=== PATIENT | female | born 1945 | race Caucasian/White ===

== ENCOUNTER 2018-12-04 08:05 | Day surgery (SDC) | payer MEDICARE, BC ==
[~2018-12-04 08:05] MED LIST: Lactated Ringers 1,000 ML IV SCH; Lidocaine 1%/Sod Bicarbonate in NS 8.4% 1 ML Syringe IDERM PRN; Sodium Chloride 0.9% 10 ML Syringe FLUSH PRN
--- NOTE | 2018-12-04 08:38 | PCM.PREANE ---
Preanesthetic Assessment - Procedure Proposed Procedure: screning colonoscopy - Anesthesia/Transfusion/Family Hx Anesthesia History: Prior Anesthesia Without Reaction Family History of Anesthesia Reaction: No Transfusion History: No Prior Transfusion(s) - Review of Systems General: No Symptoms Pulmonary: No Symptoms Cardiovascular: No Symptoms Gastrointestinal: No Symptoms Neurological: No Symptoms Other: Reports: Anxiety - Physical Assessment NPO Status Date: 12/04/18 NPO Status Time: 04:30 (finished prep) O2 Sat by Pulse Oximetry: 95 Respiratory Rate: 16 Vital Signs: Last Vital Signs Temp 97.6 F 12/04/18 08:20 Pulse 66 12/04/18 08:20 Resp 16 12/04/18 08:20 BP 199/77 H 12/04/18 08:20 Pulse Ox 95 12/04/18 08:20 Height: 5 ft 4 in Weight: 71.668 kg ASA Class: 2 Mental Status: Alert & Oriented x3 Airway Class: Mallampati = 1 Dentition: Reports: Normal Dentition Thyro-Mental Finger Breadths: 3 Mouth Opening Finger Breadths: 3 ROM/Head Extension: Full Lungs: Clear to Auscultation, Normal Respiratory Effort Cardiovascular: Regular Rate, Regular Rhythm - Allergies Allergies/Adverse Reactions: Allergies Allergy/AdvReac Type Severity Reaction Status Date / Time No Known Allergies Allergy Verified 12/03/18 15:41 - Blood Blood Available: No - Acknowledgements Anesthesia Type Planned: MAC Pt an Appropriate Candidate for the Planned Anesthesia: Yes Alternatives and Risks of Anesthesia Discussed w Pt/Guardian: Yes Pt/Guardian Understands and Agrees with Anesthesia Plan: Yes PreAnesthesia Questionnaire HEENT History: Reports: Impaired Vision Cardiovascular History: Reports: Afib, High Cholesterol, Hypertension Other Cardiovascular History: Pt takes Xarelto. Respiratory History: Reports: None Gastrointestinal History: Reports: None Genitourinary History: Reports: None GM History: Reports: None Musculoskeletal History: Reports: Other (See Below) Other Musculoskeletal History: myalgia, osteopenia Neurological History: Reports: None Psychiatric History: Reports: Anxiety, Depression Other Psychiatric History: On lexapro Endocrine/Metabolic History: Reports: None Hematologic History: Reports: Other (See Below) Other Hematologic History: elevated potassium Immunologic History: Reports: None Oncologic (Cancer) History: Reports: None Dermatologic History: Reports: Other (See Below) Other Dermatologic History: cervical lymphadenectomy - Infectious Disease History Infectious Disease History: Reports: Chicken Pox, Measles, Mumps, Other (See Below) Other Infectious Disease History: Pt states she got the shingles vaccine. - Past Surgical History Head Surgeries/Procedures: Reports: None HEENT Surgical History: Reports: None, Cataract Surgery Cardiovascular Surgical History: Reports: None Respiratory Surgical History: Reports: None GI Surgical History: Reports: Colonoscopy Female Surgical History: Reports: D&C Male Surgical History: Reports: None Endocrine Surgical History: Reports: None Neurological Surgical History: Reports: None Oncologic Surgical History: Reports: None - SUBSTANCE USE Smoking Status *Q: Never Smoker Tobacco Use Within Last Twelve Months: No Second Hand Smoke Exposure: No Days Per Week of Alcohol Use: 1 (one per month) Recreational Drug Use History: No - HOME MEDS Home Medications: Home Meds Metoprolol Tartrate [Lopressor] 75 mg PO Q12HR #60 tablet 02/24/16 [Rx] ALPRAZolam [Xanax] 0.25 - 0.5 mg PO BID PRN 12/03/18 [History] Apixaban [Eliquis] 5 mg PO DAILY 12/03/18 [History] Cholecalciferol (Vitamin D3) [Vitamin D3] 2,000 unit PO DAILY 12/03/18 [History] Lisinopril 10 mg PO DAILY 12/03/18 [History] Multivitamin [Multi-Day Vitamins] 1 tab PO DAILY 12/03/18 [History] Sertraline [Zoloft] 100 mg PO DAILY 12/03/18 [History] atorvaSTATin [Lipitor] 10 mg PO DAILY 12/03/18 [History] - CURRENT (IN HOUSE) MEDS Current Meds: Current Medications Lactated Ringer's (Ringers, Lactated) 1,000 mls @ 125 mls/hr IV ASDIRECTED [facility] Stop: 12/04/18 23:00 Lidocaine/Sodium Bicarbonate (Buffered Lidocaine 1% In Ns 8.4%) 0.25 ml IDERM ONETIME PRN PRN Reason: Prior to IV Start Stop: 12/04/18 23:00 Sodium Chloride (Saline Flush) 10 ml FLUSH ASDIRECTED PRN PRN Reason: Keep Vein Open Stop: 12/04/18 23:00
[2018-12-04] MEDS ORDERED: Propofol 200 MG/20 ML SDV ONE ×2 (08:56→10:16)
--- NOTE | 2018-12-04 10:38 | PCM48HPAN ---
Post Anesthesia Note - EVALUATION WITHIN 48HRS OF ANESTHETIC Vital Signs in Normal Range: Yes Patient Participated in Evaluation: Yes Respiratory Function Stable: Yes Airway Patent: Yes Cardiovascular Function Stable: Yes Hydration Status Stable: Yes Pain Control Satisfactory: Yes Nausea and Vomiting Control Satisfactory: Yes Mental Status Recovered: Yes Pulse Rate: 57 SaO2: 97 Resp Rate: 16 Temperature: 36.4 C Blood Pressure: 121/53
--- NOTE | 2018-12-04 10:39 | PCM.OPNOTE ---
- General Post-Op/Procedure Note Date of Surgery/Procedure: 12/04/18 Operative Procedure(s): colonoscopy with biopsy Findings: 1) small 3 mm sessile polyp in the cecum, removed by cold forceps polypectomy 2) moderate sigmoid diverticulosis Pre Op Diagnosis: screening colonoscopy Post-Op Diagnosis: Same Anesthesia Technique: MAC Primary Surgeon: Brenton Villegas Anesthesia Provider: Lucy Villegas Pathology: cecal polyp Fluid Replacement, Intraop: 1,300 (crystalloid) Complications: None Condition: Good Free Text/Narrative:: Indications for surgery: The patient is 73 yo female, h/o prior colonoscopy about 12 years ago, reportedly normal, here for repeat screening colonoscopy, average risk. The patient was consented for colonoscopy with possible biopsy. Indications, risks, and benefits were discussed with the patient in detail. Description of procedure: After surgical consent was verified, the patient was brought to the main OR. A surgical time-out was performed to verify proper patient and proper procedure. Anesthesia performed monitored anesthesia care. A digital rectal exam was performed, which was normal. The colonoscope was inserted into the anus and advanced through the colon to the terminal ileum Location of the cecum was confirmed by presence of the appendiceal orifice and by presence of the ileocecal valve. The scope was then withdrawn, with inspection of the colonic mucosa.Retroflexion was performed in the rectum. The remainder of the colon and rectum was normal. Withdrawal time was 11 minutes, including time spent performing polypectomy. There was a small 3 mm sessile polyp in the cecum, removed by cold forceps polypectomy. There was moderate sigmoid colon diverticulosis. There was minimal blood loss. The patient tolerated the procedure well, was brought out of anesthesia, and transported to the PACU in stable condition. The prep was good. Brenton Villegas M.D. ([facility]iri), F.A.C.S. General Surgery
[2018-12-04 13:01] VITALS: BP 140/59
== END 2018-12-04 11:32 | disposition home or self-care (01) ==
LOC: JD.SDS 08:05
PROVIDERS: ATTEND Student in an Organized Health Care Education/Training Program
DX: Z12.11 Encounter for screening for malignant neoplasm of colon (principal); D12.0 Benign neoplasm of cecum; K57.30 Diverticulosis of large intestine without perforation or abscess without bleeding; I10 Essential (primary) hypertension; I48.91 Unspecified atrial fibrillation; E78.5 Hyperlipidemia, unspecified; E78.00 Pure hypercholesterolemia, unspecified; F41.9 Anxiety disorder, unspecified; F32.9 Major depressive disorder, single episode, unspecified; Z79.01 Long term (current) use of anticoagulants; Z79.899 Other long term (current) drug therapy
CPT/HCPCS: 45380; 93005; J2704; J7120; 00812

== ENCOUNTER 2020-04-29 07:59 | Day surgery (SDC) | payer MEDICARE, BC ==
--- NOTE | 2020-04-27 15:10 | PCM.PREANE ---
<Denisse Malone - Last Filed: 04/27/20 15:05> Preanesthetic Assessment - Procedure Proposed Procedure: Left ring finger trigger finger release with right middle finger steroid injection - Anesthesia/Transfusion/Family Hx Anesthesia History: Prior Anesthesia Without Reaction Family History of Anesthesia Reaction: No Transfusion History: No Prior Transfusion(s) Intubation History: Unknown - Review of Systems Cardiovascular: No Symptoms (History of atrial fibrillation: on eliquis/history of white coat syndrome with elevated bp., elevated cholesterol, HTN) Other: Reports: None (CKD: GFR=44), Neck Pain (history of cervical lymphadenopathy), Depression, Anxiety - Physical Assessment NPO Status Date: 04/28/20 Vital Signs: HR: Sat: Temp: Resp: B/P: Height: 1.63 m ASA Class: 2 Mental Status: Alert & Oriented x3 - Lab Values: All labs reviewed and noted and within acceptable ranges to proceed with scheduled procedure. - Imaging/EKG Impressions: EKG: SR rate= 68, borderline T wave progression anterior leads CXR: negative - Allergies Allergies/Adverse Reactions: Allergies Allergy/AdvReac Type Severity Reaction Status Date / Time No Known Allergies Allergy Verified 04/28/20 13:04 - Anesthesia Plan Pre-Op Medication Ordered: Beta Jessica Beta Jessica: Metoprolol Med Last Dose Date: 04/29/20 - Acknowledgements Anesthesia Type Planned: MAC (Local) Pt an Appropriate Candidate for the Planned Anesthesia: Yes Alternatives and Risks of Anesthesia Discussed w Pt/Guardian: Yes Pt/Guardian Understands and Agrees with Anesthesia Plan: Yes PreAnesthesia Questionnaire HEENT History: Reports: Impaired Vision Cardiovascular History: Reports: Afib, High Cholesterol, Hypertension Other Cardiovascular History: Pt takes Xarelto. Respiratory History: Reports: None Gastrointestinal History: Reports: None Genitourinary History: Reports: None MARKETING DATABASE ANALYST History: Reports: None Musculoskeletal History: Reports: Other (See Below) Other Musculoskeletal History: myalgia, osteopenia Neurological History: Reports: None Psychiatric History: Reports: Anxiety, Depression Other Psychiatric History: On lexapro Endocrine/Metabolic History: Reports: None Hematologic History: Reports: Other (See Below) Other Hematologic History: elevated potassium Immunologic History: Reports: None Oncologic (Cancer) History: Reports: None Dermatologic History: Reports: Other (See Below) Other Dermatologic History: cervical lymphadenectomy - Infectious Disease History Infectious Disease History: Reports: Chicken Pox, Measles, Mumps, Other (See Below) Other Infectious Disease History: Pt states she got the shingles vaccine. - Past Surgical History Head Surgeries/Procedures: Reports: None HEENT Surgical History: Reports: None, Cataract Surgery Cardiovascular Surgical History: Reports: None Respiratory Surgical History: Reports: None GI Surgical History: Reports: Colonoscopy Female Surgical History: Reports: D&C Male Surgical History: Reports: None Endocrine Surgical History: Reports: None Neurological Surgical History: Reports: None Oncologic Surgical History: Reports: None - HOME MEDS Home Medications: Home Meds Metoprolol Tartrate [Lopressor] 75 mg PO Q12HR #60 tablet 02/24/16 [Rx] ALPRAZolam [Xanax] 0.25 - 0.5 mg PO BID PRN 12/03/18 [History] Apixaban [Eliquis] 5 mg PO DAILY 12/03/18 [History] Cholecalciferol (Vitamin D3) [Vitamin D3] 2,000 unit PO DAILY 12/03/18 [History] Lisinopril 10 mg PO DAILY 12/03/18 [History] Multivitamin [Multi-Day Vitamins] 1 tab PO DAILY 12/03/18 [History] Sertraline [Zoloft] 100 mg PO DAILY 12/03/18 [History] Ubidecarenone [Coq-10] 100 mg PO DAILY 04/28/20 [History] amLODIPine [Norvasc] 5 mg PO DAILY 04/28/20 [History] Acetaminophen/HYDROcodone [Davis 325-5 MG] 1 - 2 tab PO Q6H PRN #10 tablet 04/29/20 [Rx] <Justyna Reina - Last Filed: 04/29/20 08:53> Preanesthetic Assessment - Anesthesia/Transfusion/Family Hx Anesthesia History: Prior Anesthesia Without Reaction Family History of Anesthesia Reaction: No Transfusion History: No Prior Transfusion(s) Intubation History: Unknown - Review of Systems General: No Symptoms Pulmonary: No Symptoms Cardiovascular: No Symptoms Gastrointestinal: No Symptoms Neurological: No Symptoms Other: Reports: None, Neck Pain, Depression, Anxiety - Physical Assessment ASA Class: 2 Mental Status: Alert & Oriented x3 Airway Class: Mallampati = 2 Dentition: Reports: Normal Dentition Thyro-Mental Finger Breadths: 3 Mouth Opening Finger Breadths: 3 ROM/Head Extension: Full Lungs: Clear to Auscultation, Normal Respiratory Effort Cardiovascular: Regular Rate, Regular Rhythm - Lab Values: Laboratory Last Values SARS Virus RNA (PCR) Negative (NEGATIVE) 12/30/19 14:30 MRSA (PCR) Negative 04/23/20 12:15 - Anesthesia Plan Pre-Op Medication Ordered: Anxiolytic, Beta Jessica Beta Jessica: Metoprolol Med Last Dose Time: 06:30 - Acknowledgements Anesthesia Type Planned: MAC Pt an Appropriate Candidate for the Planned Anesthesia: Yes Alternatives and Risks of Anesthesia Discussed w Pt/Guardian: Yes Pt/Guardian Understands and Agrees with Anesthesia Plan: Yes PreAnesthesia Questionnaire - CURRENT (IN HOUSE) MEDS Current Meds: Current Medications Lactated Ringer's (Ringers, Lactated) 1,000 mls @ 125 mls/hr IV ASDIRECTED [facility] Stop: 04/29/20 23:00 Last Admin: 04/29/20 08:05 Dose: 125 mls/hr Documented by: Lidocaine/Sodium Bicarbonate (Buffered Lidocaine 1% In Ns 8.4%) 0.25 ml IDERM ONETIME PRN PRN Reason: Prior to IV Start Stop: 04/29/20 23:00 Last Admin: 04/29/20 08:10 Dose: 0.25 ml Documented by: Sodium Chloride (Saline Flush) 10 ml FLUSH ASDIRECTED PRN PRN Reason: Keep Vein Open Stop: 04/29/20 23:00 Discontinued Medications Bupivacaine HCl (Sensorcaine-Mpf 0.25%) Confirm Administered Dose 10 ml .ROUTE .STK-MED ONE Stop: 04/29/20 08:13 Bupivacaine HCl (Sensorcaine-Mpf 0.25%) Confirm Administered Dose 10 ml .ROUTE .STK-MED ONE Stop: 04/29/20 08:24 Fentanyl (Sublimaze) Confirm Administered Dose 100 mcg .ROUTE .STK-MED ONE Stop: 04/29/20 08:10 Lactated Ringer's (Ringers, Lactated) 1,000 mls @ 125 mls/hr IV ASDIRECTED [facility] Stop: 01/01/20 23:00 Lidocaine HCl (Xylocaine-Mpf 1%) Confirm Administered Dose 4 mls @ as directed .ROUTE .STK-MED ONE Stop: 04/29/20 08:10 Lidocaine HCl (Xylocaine-Mpf 1%) Confirm Administered Dose 30 ml .ROUTE .STK-MED ONE Stop: 04/29/20 08:13 Lidocaine/Sodium Bicarbonate (Buffered Lidocaine 1% In Ns 8.4%) 0.25 ml IDERM ONETIME PRN PRN Reason: Prior to IV Start Stop: 01/01/20 18:00 Midazolam HCl (Versed 1 Mg/Ml) Confirm Administered Dose 2 mg .ROUTE .STK-MED ONE Stop: 04/29/20 08:17 Ondansetron HCl (Zofran) Confirm Administered Dose 4 mg .ROUTE .STK-MED ONE Stop: 04/29/20 08:10 Propofol (Diprivan 20 Ml) Confirm Administered Dose 200 mg .ROUTE .STK-MED ONE Stop: 04/29/20 08:10 Sodium Chloride (Saline Flush) 10 ml FLUSH ASDIRECTED PRN PRN Reason: Keep Vein Open Stop: 01/01/20 18:00 Triamcinolone Acetonide (Triesence) Confirm Administered Dose 40 mg .ROUTE .STK- MED ONE Stop: 04/29/20 08:24
[2020-04-29] MEDS ORDERED: Propofol 200 MG/20 ML SDV ONE (08:09)
[2020-04-29] MEDS ORDERED: fentaNYL 100 MCG/2 ML SDV ONE (08:09)
[2020-04-29] MEDS ORDERED: Ondansetron 4 MG/2 ML SDV ONE (08:09)
[2020-04-29] MEDS ORDERED: Lidocaine 1% 4 ML ONE (08:09)
[2020-04-29] MEDS ORDERED: Lidocaine 1% 30 ML SDV ONE (08:12)
[2020-04-29] MEDS ORDERED: Bupivacaine 0.25% 10 ML SDV ONE ×2 (08:12→08:23)
[2020-04-29] MEDS ORDERED: Midazolam 1 MG/ML 2 ML SDV ONE (08:16)
[2020-04-29] MEDS ORDERED: TRIAMCINOLONE ACETONIDE 40 MG/ML ONE (08:23)
[2020-04-29] MEDS ORDERED: Triamcinolone Acetonide 40 MG/ML 1 ML SDV ONE (08:23)
--- NOTE | 2020-04-29 08:57 | PCM48HPAN ---
Post Anesthesia Note - EVALUATION WITHIN 48HRS OF ANESTHETIC Vital Signs in Normal Range: Yes Patient Participated in Evaluation: Yes Respiratory Function Stable: Yes Airway Patent: Yes Cardiovascular Function Stable: Yes Hydration Status Stable: Yes Pain Control Satisfactory: Yes Nausea and Vomiting Control Satisfactory: Yes Mental Status Recovered: Yes Vital Signs: Last Vital Signs Temp 36.1 C 04/29/20 08:05 Pulse 65 04/29/20 08:05 Resp 16 04/29/20 08:05 BP 155/70 H 04/29/20 08:05 Pulse Ox 98 04/29/20 08:05
[2020-04-29 09:31] VITALS: BP 134/55; PULSE 57
--- NOTE | 2020-05-06 12:17 | PCM.OPNOTE ---
- General Post-Op/Procedure Note Date of Surgery/Procedure: 04/29/20 Operative Procedure(s): left ring finger A1 jaky release and middle finger a1 jaky injection Pre Op Diagnosis: left ring finger stenosing tenosynovitis and right middle finger stenosing tenosynovitis Post-Op Diagnosis: Same Anesthesia Technique: Local, MAC Primary Surgeon: Aryan Song Anesthesia Provider: Justyna Reina Poker Dealer: Niru Peraza EBL in mLs: 5 Complications: None Condition: Good
--- NOTE | 2020-05-06 12:47 | OR ---
DATE OF OPERATION: 04/29/2020 SURGEON: Aryan Song MD OPERATION PERFORMED: Left ring finger A1 jaky release and right middle finger A1 jaky injection. PREOPERATIVE DIAGNOSIS: Left ring finger stenosing tenosynovitis and right middle finger stenosing tenosynovitis. POSTOPERATIVE DIAGNOSIS: Left ring finger stenosing tenosynovitis and right middle finger stenosing tenosynovitis. ANESTHESIA: Local MAC. ANESTHESIA PROVIDER: Chiquis Méndez. RN PALLIATIVE CARE: Niru Peraza PA-C. ESTIMATED BLOOD LOSS: Less than 5 mL. COMPLICATIONS: None. CONDITION: Stable. DESCRIPTION OF PROCEDURE: The patient was identified in the preoperative holding area. Proper site was marked and identified by the surgeon. The patient was taken back to the operative theater, where after adequate anesthesia, the patient's left upper extremity was sterilely prepped and draped in the usual sterile fashion. OR time-out was performed. The patient received 2 g IV Ancef. At this time, left upper extremity was exsanguinated with an Esmarch and Esmarch was used as a tourniquet on the forearm. At this time, transverse incision was marked, 1% lidocaine without epinephrine and 0.25% Marcaine without epinephrine were used to anesthetize the transverse incisional site over the A1 jaky of the left ring finger. A transverse incision was made. Blunt dissection was taken down to the A1 jaky. Ragnell retractors protected the neurovascular bundles and a Flagler blade was then used to resect the A1 jaky both proximally and distally making sure to stop short of the A2 jaky. The patient had no triggering. There was no sign of tendinous adhesions. Adequate saline was irrigated through the wound. 3-0 nylon was used for closure of the skin. The patient tolerated the procedure well and sent to PACU in stable condition. After that was completed, under sterile technique 1 mL of 40 mg Kenalog and 1 mL 0.25% Marcaine was injected to the right middle finger A1 jaky. MMODAL /[id number]
== END 2020-04-29 09:50 | disposition home or self-care (01) ==
LOC: JD.SDS 07:59
PROVIDERS: ATTEND Orthopaedic Surgery
DX: M65.842 Other synovitis and tenosynovitis, left hand (principal); M65.841 Other synovitis and tenosynovitis, right hand; Z01.812 Encounter for preprocedural laboratory examination; Z20.828 Contact with and (suspected) exposure to other viral communicable diseases; F41.9 Anxiety disorder, unspecified; N18.9 Chronic kidney disease, unspecified; I12.9 Hypertensive chronic kidney disease with stage 1 through stage 4 chronic kidney disease, or unspecified chronic kidney disease; F32.9 Major depressive disorder, single episode, unspecified; E78.00 Pure hypercholesterolemia, unspecified; Z79.899 Other long term (current) drug therapy; Z79.01 Long term (current) use of anticoagulants
CPT/HCPCS: 20550; 26055; 87641; J2001; J2250; J2405; J2704; J3010; J3301; J3490; J7120; U0002; 01810; J3300

== ENCOUNTER 2023-01-26 12:17 | Emergency (ER) | payer MEDICARE, BC ==
[2023-01-26] MEDS ORDERED: Lidocaine 1% 10 ML MDV INJECT ONE (12:35)
[2023-01-26 15:59] VITALS: BP 122/77; PULSE 77
== END 2023-01-26 14:55 | disposition home or self-care (01) ==
LOC: JD.ED 12:17
DX: S01.111A Laceration without foreign body of right eyelid and periocular area, initial encounter (principal); S09.90XA Unspecified injury of head, initial encounter; R60.0 Localized edema; I48.91 Unspecified atrial fibrillation; I12.9 Hypertensive chronic kidney disease with stage 1 through stage 4 chronic kidney disease, or unspecified chronic kidney disease; N18.9 Chronic kidney disease, unspecified; Z79.01 Long term (current) use of anticoagulants; Z79.899 Other long term (current) drug therapy; W01.0XXA Fall on same level from slipping, tripping and stumbling without subsequent striking against object, initial encounter
CPT/HCPCS: 12011; 70450; 70450-26; 99283; J3490